=== PATIENT | male | born 1950 | race Caucasian/White ===

== ENCOUNTER 2024-11-08 10:22 | Emergency (ER) | payer MEDICARE, OTHER ==
--- NOTE | 2024-11-08 11:19 | RAD REPORT ---
EXAM: CT brain without contrast HISTORY: Headache status post head injury. Supraorbital pain COMPARISON: None TECHNIQUE: Multiple contiguous axial images were obtained and a CT of the brain without contrast.. Sagittal and coronal reconstruction performed. Automated exposure control, adjustment of the mA and/or kV according to patient size, and/or iterative reconstruction. 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 Moderate low-density paravent ricular, deep and subcortical white matter probably ischemic changes secondary to small vessel disease. No fluid within the visualized sinuses or mastoids noted. Small metallic foreign body superficial tissue aspect of the nose. IMPRESSION: No acute intracranial abnormality noted. If the patient continues to have symptoms to suggest an acute intracranial abnormality then MRI of th e brain would be recommended.
--- NOTE | 2024-11-08 11:48 | ER ---
Nurse's Notes [facility] Name: Uzair Kerns Age: 74 yrs Sex: Male : 1950 Arrival Date: 11/08/2024 Time: 10:22 Bed 18 Private MD: Diagnosis: Postconcussional syndrome;Injury of supraorbital nerve Presentation: 11/08 10:33 Chief complaint: Patient states: 2 weeks ago pt got dizzy and fell , he was evaluated iw in an ER in [place] and they said he was ok, he is still having headaches. Coronavirus screen: At this time, the client does not indicate any symptoms associated with coronavirus-19. Ebola Screen: No symptoms or risks identified at this time. Initial Sepsis Screen: Does the patient meet any 2 criteria? No. Patient's initial sepsis screen is negative. Does the patient have a suspected source of infection? No. Patient's initial sepsis screen is negative. Risk Assessment: Do you want to hurt yourself or someone else? Patient reports no desire to harm self or others. Onset of symptoms was October 27, 2024. 10:33 Method Of Arrival: Ambulatory iw 10:33 Acuity: CHARY 3 iw Triage Assessment: 10:43 Headache History: The patient has had previous headaches and this one is similar to bp previous episodes. General: Appears in no apparent distress. comfortable, Behavior is cooperative, appropriate for age, anxious. Pain: Complains of pain in head Pain currently is 4 out of 10 on a pain scale. Pain began 2 WK AGO Also complains of no other associated symptoms. EENT: No deficits noted. Neuro: Level of Consciousness is awake, alert, obeys commands, Oriented to Appropriate for age. Cardiovascular: No deficits noted. Respiratory: No deficits noted. GI: No signs and/or symptoms were reported involving the gastrointestinal system. : No signs and/or symptoms were reported regarding the genitourinary system. Derm: No deficits noted. Musculoskeletal: No deficits noted. Historical: - Allergies: 10:43 No Known Allergies; bp - Home Meds: 10:43 trazodone 50 mg Oral tablet [Active]; atorvastatin 40 mg oral tablet [Active]; bp memantine 10 mg oral tablet [Active]; metformin 500 mg Oral tablet [Active]; - PMHx: 10:43 Diabetes mellitus; NEUROPATHY; bp - Immunization history:: Adult Immunizations up to date. - Infectious Disease History:: Denies. - Social history:: Smoking status: Patient denies any tobacco usage or history of. - Family history:: not pertinent. - Hospitalizations: : No recent hospitalization is reported. Screenin:35 [facility] ED Fall Risk Assessment (Adult) History of falling in the last 3 months, bp including since admission Yes- single mechanical fall (1 pt) Confusion or Disorientation No (0 pts) Intoxicated or Sedated No (0 pts) Impaired Gait No (0 pts) Mobility Assist Device Used No (0 pt) Altered Elimination No (0 pt) Score/Fall Risk Level 0 - 2 = Low Risk Oriented to surroundings. Abuse screen: Denies threats or abuse. Denies injuries from another. Nutritional screening: No deficits noted. Tuberculosis screening: No symptoms or risk factors identified. Assessment: 10:40 General: Appears in no apparent distress. comfortable, Behavior is calm, cooperative, bp appropriate for age. Pain: Complains of pain in forehead. Neuro: Level of Consciousness is awake, alert, obeys commands, Oriented to Appropriate for age Gait is steady. Cardiovascular: No deficits noted. Respiratory: No deficits noted. GI: No signs and/or symptoms were reported involving the gastrointestinal system. : No signs and/or symptoms were reported regarding the genitourinary system. EENT: No deficits noted. Derm: No deficits noted. Musculoskeletal: No deficits noted. Vital Signs: 10:37 BP 125 / 65; Pulse 76; Resp 16; Temp 98; Pulse Ox 95% ; bp 12:15 BP 131 / 71; Pulse 72; Resp 16; Temp 98; Pulse Ox 97% ; bp Festus Coma Score: 11:45 Eye Response: spontaneous(4). Motor Response: obeys commands(6). Verbal Response: rn oriented(5). Total: 15. ED Course: 10:27 Patient arrived in ED. al6 10:30 Jarrell Wheeler, DOMENICO is Primary Nurse. bp 10:31 Michael Jennings MD is Attending Physician. rn 10:35 Triage completed. iw 10:35 Arm band placed on. iw 10:35 Patient has correct armband on for positive identification. bp 10:35 No provider procedures requiring assistance completed. Patient did not have IV access bp during this emergency room visit. 10:59 CT Head Brain wo Cont In Process Unspecified. EDMS 12:15 Provided Education on:. bp Administered Medications: No medications were administered Medication: 12:15 VIS not applicable for this client. bp Outcome: 10:35 Discharged to home ambulatory, with family, bp 10:35 Condition: stable 10:35 Discharge instructions given to patient, Instructed on discharge instructions, follow up and referral plans. medication usage, Demonstrated understanding of instructions, follow-up care, medications, Prescriptions given X 1, 11:47 Discharge ordered by . rn 12:16 Patient left the ED. bp Signatures: Dispatcher [employer] EDMS Kinsey Gannon, RN RN iw Michael Jennings MD MD rn Peltier, Brian, RN RN bp Pauline Heart Corrections: (The following items were deleted from the chart) 10:45 10:43 PMHx: Hypertensive disorder; bp bp
--- NOTE | 2024-11-08 11:48 | EDPHYS ---
Physician Documentation [facility] Name: Uzair Kerns Age: 74 yrs Sex: Male : 1950 Arrival Date: 11/08/2024 Time: 10:22 Bed 18 Private MD: ED Physician Michael Jennings HPI: 11/08 10:45 This 74 yrs old Male presents to ER via Ambulatory with complaints of Headache, Fall rn Injury - to head. 10:45 The patient complains of pain to the forehead. The patient describes the headache as rn aching. Onset: The symptoms/episode began/occurred 2 week(s) ago. Associated signs and symptoms: Pertinent negatives: altered mental status, fever, neck stiffness. Severity of symptoms: At its worst the pain was mild, in the emergency department the pain is unchanged. The symptoms are alleviated by nothing. the symptoms are aggravated by nothing. The patient has not experienced similar symptoms in the past. Patient reports fall 2 weeks ago, struck left supraorbital region on floor, no LOC, seen at outside ER with negative imaging of the head. Has been having focal pain to the left supraorbital ridge since then. No new falls or syncope. No dizziness. Patient reports has chronic neuropathy and thinks that is how he fell.. Historical: - Allergies: 10:43 No Known Allergies; bp - Home Meds: 10:43 trazodone 50 mg Oral tablet [Active]; atorvastatin 40 mg oral tablet [Active]; bp memantine 10 mg oral tablet [Active]; metformin 500 mg Oral tablet [Active]; - PMHx: 10:43 Diabetes mellitus; NEUROPATHY; bp - Immunization history:: Adult Immunizations up to date. - Infectious Disease History:: Denies. - Social history:: Smoking status: Patient denies any tobacco usage or history of. - Family history:: not pertinent. - Hospitalizations: : No recent hospitalization is reported. ROS: 10:46 Constitutional: Negative for fever, chills, and weight loss, Neck: Negative for injury, rn pain, and swelling, Cardiovascular: Negative for chest pain, palpitations, and edema, Respiratory: Negative for shortness of breath, cough, wheezing, and pleuritic chest pain, Abdomen/GI: Negative for abdominal pain, nausea, vomiting, diarrhea, and constipation, Neuro: Positive for headache Exam: 10:46 Constitutional: This is a well developed, well nourished patient who is awake, alert, rn and in no acute distress. Head/Face: Normocephalic, atraumatic. Point tenderness left supraorbital ridge over supraorbital nerve exit Eyes: Pupils equal round and reactive to light, extra-ocular motions intact. Lids and lashes normal. Conjunctiva and sclera are non-icteric and not injected. Cornea within normal limits. Periorbital areas with no swelling, redness, or edema. Neuro: Awake and alert, GCS 15, oriented to person, place, time, and situation. Vital Signs: 10:37 BP 125 / 65; Pulse 76; Resp 16; Temp 98; Pulse Ox 95% ; bp 12:15 BP 131 / 71; Pulse 72; Resp 16; Temp 98; Pulse Ox 97% ; bp Festus Coma Score: 11:45 Eye Response: spontaneous(4). Motor Response: obeys commands(6). Verbal Response: rn oriented(5). Total: 15. MDM: 10:31 Medical Screening Exam initiated rn 11:45 Differential diagnosis: migraine, subdural hematoma, tension headache, Neuropraxia, rn injury to supraorbital nerve. Data reviewed: vital signs, nurses notes, radiologic studies, CT scan, and as a result, I will discharge patient. Counseling: I had a detailed discussion with the patient and/or guardian regarding the historical points, exam findings, and any diagnostic results supporting the discharge/admit diagnosis, radiology results, the need for outpatient follow up, to return to the emergency department if symptoms worsen or persist or if there are any questions or concerns that arise at home. Special discussion: Based on the patient's history, exam and DX evaluation, there is no indication for emergent intervention or inpatient TX. It is understood by the patient/guardian that if the SXs persist or worsen they need to return immediately for re-evaluation. I discussed with the patient/guardian in detail that at this point there is no indication for admission to the hospital. It is understood, however, that if the symptoms persist or worsen the patient needs to return immediately for re-evaluation. ED course: CT head images negative for subdural hematoma or fracture per my interpretation. Patient most likely injured supraorbital nerve on its exit as he has point tenderness there and persistent pain since head injury. Will discharge home on gabapentin as he has been on it before for neuropathy but no longer taking it. He tolerated it well at the time. Return precautions given and understood.. 11/08 10:43 Order name: CT Head Brain wo Cont; Complete Time: 11:20 rn Administered Medications: No medications were administered Disposition Summary: 11/08/24 11:47 Discharge Ordered Notes: Location: Home rn Problem: new rn Symptoms: have improved rn Condition: Stable rn Diagnosis - Postconcussional syndrome rn - Injury of supraorbital nerve rn Followup: rn - With: Private Physician - When: As needed - Reason: Recheck today's complaints, Re-evaluation by your physician Discharge Instructions: - Discharge Summary Sheet rn - Post-Concussion Syndrome rn Forms: - Medication Reconciliation Form rn - Antibiotic maternal fetal physician - Prescription Opioid Use rn - Patient Portal Instructions rn - Leadership Thank You Letter rn Prescriptions: - gabapentin 100 mg Oral capsule - take 1 capsule ORAL route 2 times per day As needed; 14 capsule; Refills: 0, rn Product Selection Permitted Signatures: Dispatcher [employer] EDMichael Drew MD MD rn Peltier, Brian, RN RN bp Corrections: (The following items were deleted from the chart) 10:45 10:43 PMHx: Hypertensive disorder; bp bp
[2024-11-08 13:45] VITALS: TEMP 98
[2024-11-08 13:46] VITALS: BP 131/71; O2SAT 97
== END 2024-11-08 12:16 | disposition home or self-care (01) ==
LOC: ER 10:22
DX: R51.9 Headache, unspecified (principal); F07.81 Postconcussional syndrome; S04.52XA Injury of facial nerve, left side, initial encounter; E11.9 Type 2 diabetes mellitus without complications; G62.9 Polyneuropathy, unspecified
CPT/HCPCS: 70450

== ENCOUNTER 2024-11-21 15:23 | Emergency (ER) | payer MEDICARE, OTHER ==
[2024-11-21 15:54] LABS: Absolute Basophils 0.1 K/uL (0-0.5); Absolute Eosinophils 0.2 K/uL (0-0.5); Absolute Lymphocytes (CBC) 1.9 K/uL (0.7-4.9); Absolute Monocytes 0.6 K/uL (0.1-1.3); Absolute Neutrophil 5.8 K/uL (1.8-8.0); Basophils % 0.8 % (0-1.3); Eosinophils % 2.4 % (0-4.4); Hematocrit 40.2 % (39.6-49.0); Hemoglobin 14.2 g/dL (13.6-17.9); Lymphocytes % 22.3 % (15.3-44.8); MCHC 35.4 g/dL (32.0-36.0); MCV 96.2 fL (80-100); MPV 7.1 fL (7.6-11.3); Monocytes % 6.6 % (3.3-12.3); Neutrophils % 67.9 % (41.7-73.7); Nucleated Red Blood Cells % 0.1 % (0-0); Platelets 206 thou/uL (152-406); RBC Red Blood Cell Count 4.17 M/uL (4.33-5.43); Red Cell Distribution Width 12.2 % (12.1-15.2)
[2024-11-21 16:19] LABS: Troponin High Sensitivity 5.8 pg/mL (<58.9)
--- NOTE | 2024-11-21 17:17 | RAD REPORT ---
EXAM: Chest Single View HISTORY: CHEST PAIN COMPARISON: None. FINDINGS: LUNGS/PLEURA: Mild coarsening of the pulmonary interstitium. No focal consolidation or edema. MEDIASTINUM: The mediastinal silhouette is within normal limits. CARDIAC: Mild cardiomegaly UPPER ABDOMEN: No significant abnormality. BONES: No acute abnormality. Fusion hardware in the spine. LINES/TUBES/OTHER: N/A IMPRESSION: Mild coarsened interstitium which could reflect chronic changes. No consolidative airspace disease or edema.
--- NOTE | 2024-11-21 18:16 | ER ---
Nurse's Notes [facility] Name: Uzair Kerns Age: 74 yrs Sex: Male : 1950 Arrival Date: 11/21/2024 Time: 15:23 Bed 7 Private MD: Diagnosis: Lightheadedness;Nausea with vomiting, unspecified Presentation: 11/21 15:33 Chief complaint: Patient states: took Nitro SL x1 at home for anxiety. Pt reports he ss hasn't taken it in a long time and thought it might help with his anxiety. Pt reports shortly after administration, he became nauseated and vomited x 1. EMS reports initial BP on arrival was 90/60. Pt reports feeling better at this time. Coronavirus screen: Client denies travel out of the [place] in the last 14 days. Ebola Screen: Patient denies exposure to infectious person. Patient denies travel to an Ebola-affected area in the 21 days before illness onset. Initial Sepsis Screen: Does the patient meet any 2 criteria? No. Patient's initial sepsis screen is negative. Does the patient have a suspected source of infection? No. Patient's initial sepsis screen is negative. Risk Assessment: Do you want to hurt yourself or someone else? Patient reports no desire to harm self or others. Onset of symptoms was November 21, 2024. Care prior to arrival: Medication(s) given: Normal saline infusion, 750 mL IV initiated. 20 GA, in the right wrist. 15:33 Method Of Arrival: EMS: [facility] ss 15:33 Acuity: CHARY 3 ss Historical: - Allergies: 15:35 No Known Allergies; ss - PMHx: 15:35 diabetes mellitus; neuropathy; PTSD (neuropathy); ss - Immunization history:: Client reports having NOT received the Covid vaccine. - Infectious Disease History:: Denies. - Social history:: Smoking status: Patient reports the use of cigarette tobacco products, denies chronic smoking, but will smoke occasionally. Screenin:36 Abuse screen: Denies threats or abuse. Denies injuries from another. Nutritional ss screening: No deficits noted. Tuberculosis screening: Never had TB. 15:49 [facility] ED Fall Risk Assessment (Adult) History of falling in the last 3 months, ll1 including since admission No falls in past 3 months (0 pts) Confusion or Disorientation No (0 pts) Intoxicated or Sedated No (0 pts) Impaired Gait Yes (1 pt) Mobility Assist Device Used No (0 pt) Altered Elimination Yes (1 pt) Score/Fall Risk Level 3 or more points = High Risk Maintained a safe environment, Hourly rounding (assess needs \T\ fall precautionary measures) done, Used ambulatory aids as needed (educated on \T\ assisted with), Utilized family, sitter, or virtual tax specialist as indicated. Assessment: 15:36 General: Appears in no apparent distress. comfortable, well groomed, well developed, ss well nourished, Behavior is calm, cooperative, Denies fever, feeling ill, fatigue, chills. Pain: Denies pain. Neuro: Level of Consciousness is awake, alert, obeys commands, Oriented to person, place, time, situation. Respiratory: Airway is patent Respiratory effort is even, unlabored, Respiratory pattern is regular, symmetrical, Denies cough, shortness of breath pain with respiration, pain with cough, pain with movement. GI: Abdomen is non-distended, Patient currently denies nausea, Pt reports vomiting x 1 just after taking a Nitro. : No signs and/or symptoms were reported regarding the genitourinary system. EENT: Oral mucosa is moist. Derm: Skin Skin is pink, warm \T\ dry. normal. 16:39 Reassessment: Patient appears in no apparent distress at this time. Patient and/or ss family updated on plan of care and expected duration. Pain level reassessed. Patient is alert, oriented x 3, equal unlabored respirations, skin warm/dry/pink. at bedside. Vital Signs: 15:33 BP 124 / 78; Pulse 56; Resp 15; Temp 98(TE); Pulse Ox 97% on R/A; Weight 81.65 kg; ss Height 5 ft. 11 in. ; Pain 0/10; 18:13 BP 126 / 77; Pulse 54; Resp 16; Pulse Ox 99% on R/A; ss 15:33 Body Mass Index 25.10 (81.65 kg, 180.34 cm) ss 15:33 Pain Scale: Adult ss ED Course: 15:30 Provided Education on: ER procedures and process. ll1 15:31 Patient arrived in ED. ss 15:35 Triage completed. ss 15:35 Arm band placed on right wrist. ss 15:36 Patient has correct armband on for positive identification. Bed in low position. Call ss light in reach. Side rails up X 1. Adult w/ patient. Client placed on continuous cardiac and pulse oximetry monitoring. NIBP monitoring applied. Warm blanket given. 15:36 Maintain EMS IV. Dressing intact. Good blood return noted. Site clean \T\ dry. Gauge \T\ ss site: 20 gauge in R wrist. Flushed with 10 mL NS. 15:38 Jannie Noguera, RN is Primary Nurse. [facility] 15:38 Dejuan Schroeder DO is Attending Physician. ms3 15:38 Initial lab(s) drawn, by me, sent to lab. EKG done. ll1 16:41 XRAY Chest (1 view) In Process Unspecified. EDMS 18:23 No provider procedures requiring assistance completed. IV discontinued, intact, ss bleeding controlled, No redness/swelling at site. Pressure dressing applied. Administered Medications: No medications were administered Medication: 15:36 VIS not applicable for this client. ss Outcome: 18:15 Discharge ordered by MD. ms3 18:23 Discharged to home ambulatory, with significant other, ss 18:23 Condition: good 18:23 Discharge instructions given to patient, Instructed on discharge instructions, follow up and referral plans. Demonstrated understanding of instructions, follow-up care, 18:24 Patient left the ED. ss Signatures: Dispatcher [employer] EDMS Michelle Gusman RN RN Jannie Noguera, DOMENICO RN [facility] Dejuan Schroeder DO DO ms3
--- NOTE | 2024-11-21 18:16 | EDPHYS ---
Physician Documentation [facility] Name: Uzair Kerns Age: 74 yrs Sex: Male : 1950 Arrival Date: 11/21/2024 Time: 15:23 Bed 7 Private MD: ED Physician Dejuan Schroeder HPI: 11/21 17:29 This 74 yrs old Male presents to ER via EMS with complaints of Nausea. ms3 17:29 74-year-old male with past medical history of diabetes, neuropathy, PTSD [facility] the [facility] department for lightheadedness. Patient states he went for a ride on his golf cart with his and on returning noted his nitroglycerin had arrived in the mail. Patient has not taken nitroglycerin in a while and took a nitroglycerin pill. Patient states after taking the pill he then became lightheaded and vomited.. Historical: - Allergies: 15:35 No Known Allergies; ss - PMHx: 15:35 diabetes mellitus; neuropathy; PTSD (neuropathy); ss - Immunization history:: Client reports having NOT received the Covid vaccine. - Infectious Disease History:: Denies. - Social history:: Smoking status: Patient reports the use of cigarette tobacco products, denies chronic smoking, but will smoke occasionally. ROS: 17:29 Constitutional: Negative for fever, and chills. Respiratory: Negative for shortness of ms3 breath, cough, wheezing, and pleuritic chest pain, 17:29 MS/Extremity: Negative for injury and deformity, Skin: Negative for injury, rash, and discoloration, 17:29 Cardiovascular: Negative for chest pain, and palpitations. 17:29 Abdomen/GI: Positive for vomiting, Negative for nausea, diarrhea, Exam: 17:29 Constitutional: This is a well developed, well nourished patient who is awake, alert, ms3 and in no acute distress. Cardiovascular: Regular rate and rhythm with a normal S1 and S2. No gallops, murmurs, or rubs. Normal PMI, no JVD. No pulse deficits. Respiratory: Lungs have equal breath sounds bilaterally, clear to auscultation and percussion. No rales, rhonchi or wheezes noted. No increased work of breathing, no retractions or nasal flaring. Abdomen/GI: Soft, non-tender, with normal bowel sounds. No distension or tympany. No guarding or rebound. No evidence of tenderness throughout. Skin: Warm, dry with normal turgor. Normal color with no rashes, no lesions, and no evidence of cellulitis. 17:31 ECG was reviewed by the Attending Physician. ms3 Vital Signs: 15:33 BP 124 / 78; Pulse 56; Resp 15; Temp 98(TE); Pulse Ox 97% on R/A; Weight 81.65 kg; ss Height 5 ft. 11 in. ; Pain 0/10; 18:13 BP 126 / 77; Pulse 54; Resp 16; Pulse Ox 99% on R/A; ss 15:33 Body Mass Index 25.10 (81.65 kg, 180.34 cm) ss 15:33 Pain Scale: Adult ss MDM: 15:57 Medical Screening Exam initiated ms3 17:29 Differential diagnosis: Nonspecific abd pain, PA vs Arrhythmia vs Electrolyte ms3 abnormality. 18:16 Data reviewed: vital signs, nurses notes, lab test result(s), EKG, radiologic studies, ms3 and as a result, I will discharge patient. Independent interpretation of the following test(s) in the Emergency Department EKG: See my EKG interpretation above. Counseling: I had a detailed discussion with the patient and/or guardian regarding the historical points, exam findings, and any diagnostic results supporting the discharge/admit diagnosis, lab results, radiology results, the need for outpatient follow up, to return to the emergency department if symptoms worsen or persist or if there are any questions or concerns that arise at home. Special discussion: Based on the patient's history, exam, and Dx evaluation, there is no indication for emergent intervention or inpatient Tx. It is understood by the patient/guardian that if the Sx's persist or worsen they need to return immediately for re-evaluation. ED course: Discussed chest x-ray, EKG, labs with patient and his . Patient states his symptoms have resolved and he would like discharge. All questions were answered. Return precautions discussed include worsening symptoms, or any other concerns. On reevaluation patient is alert and oriented x 4, no apparent distress, nontoxic-appearing, speaking full sentences.. 11/21 15:38 Order name: Basic Metabolic Panel; Complete Time: 17: ll1 11/21 15:38 Order name: CBC with Diff; Complete Time: 17:09 ll1 02/24 15:38 Order name: Troponin HS; Complete Time: 17:09 11/21 15:38 Order name: XRAY Chest (1 view); Complete Time: 17:29 ll11/21 15:38 Order name: EKG; Complete Time: 15:39 11/21 15:38 Order name: Cardiac monitoring; Complete Time: 15:39 11/21 15:38 Order name: EKG - Nurse/Tech; Complete Time: 15:39 11/21 15:38 Order name: IV Saline Lock; Complete Time: 15:39 ll11/21 15:38 Order name: Labs collected and sent; Complete Time: 15:39 11/21 15:38 Order name: O2 Per Protocol; Complete Time: 15:39 11/21 15:38 Order name: O2 Sat Monitoring; Complete Time: 15:39 ll1 EC:31 Rate is 56 beats/min. Rhythm is regular. WA interval is normal. QRS interval is normal. ms3 Clinical impression: NSR w/ Non-specific ST/T Changes. Interpreted by me. Reviewed by me. Administered Medications: No medications were administered Disposition Summary: 11/21/24 18:15 Discharge Ordered Notes: Location: Home ms3 Condition: Stable ms3 Diagnosis - Lightheadedness ms3 - Nausea with vomiting, unspecified ms3 Followup: ms3 - With: Private Physician - When: 2 - 3 days - Reason: Recheck today's complaints Discharge Instructions: - Discharge Summary Sheet ms3 - Nausea and Vomiting, Adult ms3 - Dizziness, [id number] ms3 Forms: - Medication Reconciliation Form ms3 - Antibiotic Education ms3 - Prescription Opioid Use ms3 - Patient Portal Instructions ms3 - Leadership Thank You Letter ms3 Signatures: Dispatcher [employer] Michelle Mg RN RN ss Jannie Noguera RN RN 1 Dejuan Schroeder DO DO ms3
[2024-11-21 18:35] VITALS: TEMP 98
[2024-11-21 18:36] VITALS: BP 126/77; O2SAT 99
== END 2024-11-21 18:24 | disposition home or self-care (01) ==
LOC: ER 15:23
DX: R42 Dizziness and giddiness (principal); R11.2 Nausea with vomiting, unspecified; E11.9 Type 2 diabetes mellitus without complications; F17.210 Nicotine dependence, cigarettes, uncomplicated
CPT/HCPCS: 36415; 71045; 80048; 84484; 85025; 93005; 99284

== ENCOUNTER 2025-01-27 12:30 | Emergency (ER) | payer MEDICARE ==
[2025-01-27] MEDS ORDERED: FLEET ENEMA ADULT PR ONE (12:49)
--- NOTE | 2025-01-27 13:12 | RAD REPORT ---
EXAM: Chest Single View HISTORY: 74 years Male DYSPNEA COMPARISON: 11/21/2024 FINDINGS: LUNGS/PLEURA: Similar coarsened pulmonary interstitium. No focal consolidation. No definite edema. CARDIAC/MEDIASTINUM: The cardiac silhouette is within normal limits. UPPER ABDOMEN: No significant abnormality. BONES: No acute abnormality. LINES/TUBES/OTHER: N/A IMPRESSION: No evidence of acute cardiopulmonary disease. No significant change from prior.
[2025-01-27 13:27] LABS: Absolute Eosinophils 0.1 K/uL (0-0.5); Absolute Lymphocytes (CBC) 2.2 K/uL (0.7-4.9); Absolute Monocytes 0.5 K/uL (0.1-1.3); Absolute Neutrophil 7.4 K/uL (1.8-8.0); Basophils % 0.4 % (0-1.3); Eosinophils % 1.1 % (0-4.4); Hemoglobin 12.6 g/dL (13.6-17.9); Lymphocytes % 21.3 % (15.3-44.8); MCH 33.9 pg (27.0-35.0); MCHC 34.9 g/dL (32.0-36.0); MCV 97.1 fL (80-100); MPV 7.1 fL (7.6-11.3); Monocytes % 5.2 % (3.3-12.3); Nucleated Red Blood Cells % 0.1 % (0-0); Platelets 218 thou/uL (152-406); RBC Red Blood Cell Count 3.71 M/uL (4.33-5.43); Red Cell Distribution Width 13.9 % (12.1-15.2)
[2025-01-27 13:35] LABS: D-Dimer 0.555 FEUug/mL (0-0.500); PT Prothrombin Time 13.1 SECONDS (10-13.0); Protime INR 1.16
[2025-01-27 14:21] LABS: Potassium 3.8 mEq/L (3.5-5.1)
[2025-01-27 14:23] LABS: Albumin 3.8 g/dL (3.4-5.0); Anion Gap 10.8 mEq/L (5.0-15.0); Magnesium 2.1 mg/dL (1.6-2.4)
[2025-01-27 14:26] LABS: Bilirubin Direct 0.2 mg/dL (0-0.2)
[2025-01-27 14:28] LABS: Albumin/Globulin Ratio 1.1 (1.1-1.8); Bilirubin Indirect, Calculated 0.4 mg/dL (0.2-0.8); Bilirubin Total 0.6 mg/dL (0.2-1.0); Globulin 3.4 g/dL (2.3-3.5); Protein, Total 7.2 g/dL (6.4-8.2)
[2025-01-27 14:35] LABS: Troponin High Sensitivity 10.6 pg/mL (<58.9)
--- NOTE | 2025-01-27 14:45 | EDPHYS ---
Physician Documentation [facility] Name: Uzair Kerns Age: 74 yrs Sex: Male : 1950 Arrival Date: 01/27/2025 Time: 12:30 Bed 8 Private MD: ED Physician Halley Spann HPI: 01/27 14:45 This 74 yrs old Male presents to ER via EMS with complaints of Chest Pain. gb1 14:45 74-year-old male with chief complaint of initially per EMS chest pain. Patient states gb1 that he really has to use the restroom and cannot do that at home. He has a history of diabetes, neuropathy and PTSD. Patient denies any shortness of breath at this time. He denies any radiation of any kind of pain.. Historical: - Allergies: 12:32 No Known Allergies; aa5 - PMHx: 12:32 diabetes mellitus; neuropathy; PTSD (neuropathy); aa5 - Immunization history:: Adult Immunizations up to date. - Infectious Disease History:: Denies. - Social history:: Smoking status: unknown. Exam: 14:45 Constitutional: This is a well developed, well nourished patient who is awake, alert, gb1 and in no acute distress. Head/Face: Normocephalic, atraumatic. Eyes: Pupils equal round and reactive to light, extra-ocular motions intact. Lids and lashes normal. Conjunctiva and sclera are non-icteric and not injected. Cornea within normal limits. Periorbital areas with no swelling, redness, or edema. ENT: Nares patent. No nasal discharge, no septal abnormalities noted. Tympanic membranes are normal and external auditory canals are clear. Oropharynx with no redness, swelling, or masses, exudates, or evidence of obstruction, uvula midline. Mucous membranes moist. Neck: Trachea midline, no thyromegaly or masses palpated, and no cervical lymphadenopathy. Supple, full range of motion without nuchal rigidity, or vertebral point tenderness. No Meningismus. Chest/axilla: Normal chest wall appearance and motion. Nontender with no deformity. No lesions are appreciated. Cardiovascular: Regular rate and rhythm with a normal S1 and S2. No gallops, murmurs, or rubs. Normal PMI, no JVD. No pulse deficits. Respiratory: Lungs have equal breath sounds bilaterally, clear to auscultation and percussion. No rales, rhonchi or wheezes noted. No increased work of breathing, no retractions or nasal flaring. Abdomen/GI: Soft, non-tender, with normal bowel sounds. No distension or tympany. No guarding or rebound. No evidence of tenderness throughout. Back: No spinal tenderness. No costovertebral tenderness. Full range of motion. Skin: Warm, dry with normal turgor. Normal color with no rashes, no lesions, and no evidence of cellulitis. MS/ Extremity: Pulses equal, no cyanosis. Neurovascular intact. Full, normal range of motion. Neuro: Awake and alert, GCS 15, oriented to person, place, time, and situation. Cranial nerves II-XII grossly intact. Motor strength 5/5 in all extremities. Sensory grossly intact. Cerebellar exam normal. Normal gait. Vital Signs: 12:35 BP 146 / 80; Pulse 62; Resp 16; Temp 97.9; Pulse Ox 99% ; bp 14:54 BP 141 / 79; Pulse 61; Resp 16; Pulse Ox 99% ; bp MDM: 12:36 Medical Screening Exam initiated gb1 14:45 Data reviewed: vital signs, nurses notes. ED course: 74-year-old male with gb1 history of diabetes, neuropathy and PTSD presented with initially per EMS chest pain. When the patient got to the bedside he denied any chest pain and stated that he just needed use the restroom. Bedside nursing helped the patient to the restroom and he did have a large bowel movement. Patient denies any anginal component chest pain his EKG shows sinus bradycardia with a sinus arrhythmia he has some nonspecific ST-T wave changes that are nonreciprocal in nature. He has normal intervals and axis. Patient at this time is stable for discharge home I doubt NSTEMI, or STEMI I doubt PE or any CHF with pulmonary edema. Patient's chest x-ray shows no focal pneumonia and no cardiomegaly I will discharge him home with return precautions which is compliant to prior to discharge home today.. 01/27 12:44 Order name: Basic Metabolic Panel [facility] 01/27 12:44 Order name: CBC with Diff; Complete Time: 13:49 [facility] 01/27 12:44 Order name: D-Dimer; Complete Time: 13:49 [facility] 01/27 12:44 Order name: LFT's [facility] 01/27 12:44 Order name: Magnesium [facility] 01/27 12:44 Order name: NT PRO-BNP [facility] 01/27 12:44 Order name: PT-INR; Complete Time: 13:49 [facility] 01/27 12:44 Order name: Troponin HS [facility] 01/27 12:44 Order name: XRAY Chest (1 view); Complete Time: 13:23 [facility] 01/27 12:44 Order name: EKG; Complete Time: 12:44 [facility] 01/27 12:44 Order name: Cardiac monitoring; Complete Time: 12:53 [facility] 01/27 12:44 Order name: EKG - Nurse/Tech; Complete Time: 13:11 [facility] 01/27 12:44 Order name: IV Saline Lock; Complete Time: 12:53 [facility] 01/27 12:44 Order name: Labs collected and sent; Complete Time: 13:15 [facility] 01/27 12:44 Order name: O2 Per Protocol; Complete Time: 12:53 [facility] 01/27 12:44 Order name: O2 Sat Monitoring; Complete Time: 12:53 [facility] 01/27 13:32 Order name: Labs - recollect needed: recollect green top/ not filled enough; Complete eb Time: 13:53 Administered Medications: 12:52 Not Given (DUPLICATEe): aspirinchewable tablet 324 mg PO once; 81 mg tablets x 4 bp Disposition Summary: 01/27/25 14:44 Discharge Ordered Notes: Location: Home gb1 Condition: Stable gb1 Diagnosis - Constipation, unspecified gb1 Followup: gb1 - With: Private Physician - When: - Reason: If symptoms return Discharge Instructions: - Discharge Summary Sheet gb1 - Constipation, Adult, [id number] gb1 Forms: - Medication Reconciliation Form gb1 - Antibiotic Education gb1 - Prescription Opioid Use gb1 - Patient Portal Instructions gb1 - Leadership Thank You Letter gb1 Signatures: Dispatcher [employer] Suzanne Gueavra, RN RN aa5 Jarrell Wheeler RN RN bp Candy Rosa Gina, MD MD gb1
--- NOTE | 2025-01-27 14:45 | ER ---
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 Coronavirus screen: At this time, the client does not indicate any symptoms associated with coronavirus-19. Ebola Screen: No symptoms or risks identified at this time. Initial Sepsis Screen: Does the patient meet any 2 criteria? No. Patient's initial sepsis screen is negative. Does the patient have a suspected source of infection? No. Patient's initial sepsis screen is negative. Risk Assessment: Do you want to hurt yourself or someone else? Patient reports no desire to harm self or others. Onset of symptoms was January 27, 2025. Care prior to arrival: Medication(s) given: ASA, 81 mg, x 4, Nitroglycerin, 0.4 mg SL x 3. 12:35 Method Of Arrival: EMS bp 12:35 Acuity: CHARY 3 bp 12:38 Care prior to arrival: IV initiated. 18 GA, in the left wrist. bp Triage Assessment: 12:35 General: Appears in no apparent distress. Behavior is agitated, anxious, uncooperative. bp Pain: Complains of pain in chest. EENT: No deficits noted. Neuro: No deficits noted. Cardiovascular: No deficits noted. Respiratory: No deficits noted. GI: No signs and/or symptoms were reported involving the gastrointestinal system. : No signs and/or symptoms were reported regarding the genitourinary system. Derm: No deficits noted. Musculoskeletal: No deficits noted. Historical: - Allergies: 12:32 No Known Allergies; aa5 - PMHx: 12:32 diabetes mellitus; neuropathy; PTSD (neuropathy); aa5 - Immunization history:: Adult Immunizations up to date. - Infectious Disease History:: Denies. - Social history:: Smoking status: unknown. Screenin:[facility] ED Fall Risk Assessment (Adult) History of falling in the last 3 months, bp including since admission No falls in past 3 months (0 pts) Confusion or Disorientation No (0 pts) Intoxicated or Sedated No (0 pts) Impaired Gait No (0 pts) Mobility Assist Device Used No (0 pt) Altered Elimination No (0 pt) Score/Fall Risk Level 0 - 2 = Low Risk Oriented to surroundings. Abuse screen: Denies threats or abuse. Denies injuries from another. Nutritional screening: No deficits noted. Tuberculosis screening: No symptoms or risk factors identified. Assessment: 12:51 General: Appears in no apparent distress. Behavior is agitated, anxious. bp Vital Signs: 12:35 BP 146 / 80; Pulse 62; Resp 16; Temp 97.9; Pulse Ox 99% ; bp 14:54 BP 141 / 79; Pulse 61; Resp 16; Pulse Ox 99% ; bp ED Course: 12:31 Patient arrived in ED. aa5 12:32 Arm band placed on. aa5 12:34 Halley Spann MD is Attending Physician. gb1 12:35 Jarrell Wheeler, RN is Primary Nurse. bp 12:37 Triage completed. bp 12:51 Patient has correct armband on for positive identification. bp 12:51 Maintain EMS IV. Dressing intact. Good blood return noted. Site clean \T\ dry. Gauge \T\ bp site: 18 LEFT WRIST. Flushed with 10 mL NS. 13:06 XRAY Chest (1 view) In Process Unspecified. EDMS 13:11 EKG done, by ED staff, reviewed by Halley Spann MD. em1 13:15 Initial lab(s) drawn, by me, sent to lab. bp 14:53 No provider procedures requiring assistance completed. IV discontinued, intact, bp bleeding controlled, No redness/swelling at site. Pressure dressing applied. Administered Medications: 12:52 Not Given (DUPLICATEe): aspirinchewable tablet 324 mg PO once; 81 mg tablets x 4 bp Medication: 12:51 VIS not applicable for this client. bp Outcome: 14:44 Discharge ordered by . gb1 14:54 Discharged to home ambulatory, with family, bp 14:54 Condition: stable 14:54 Discharge instructions given to patient, Instructed on discharge instructions, follow up and referral plans. Demonstrated understanding of instructions, follow-up care, 14:55 Patient left the ED. bp Signatures: Dispatcher [employer] EDMS Balbir Jhaveri em1 Suzanne Vera, RN RN aa5 Jarrell Wheeler, RN RN bp Zana, MD MURIEL Rowley gb1 Corrections: (The following items were deleted from the chart) 12:53 12:35 BP 146 / 80; Pulse 62bpm; Resp 16bpm; Pulse Ox 99%; bp bp
[2025-01-27 15:45] VITALS: TEMP 97.9; O2SAT 99
[2025-01-27 15:46] VITALS: BP 141/79
--- NOTE | 2025-01-30 12:11 | EKG ---
Test Date: 2025-01-27 Test Time: 13:07:35 Counter Dish Carrier: SHAILESH MEASUREMENT RESULTS: Intervals: Rate: 52 IA: 194 QRSD: 96 QT: 468 QTc: 435 [place]: P: 73 IA: 194 QRS: 68 T: 82 INTERPRETIVE STATEMENTS: Sinus bradycardia with sinus arrhythmia Nonspecific ST and T wave abnormality Abnormal ECG Compared to ECG 11/21/2024 15:33:32 ST (T wave) deviation now present First degree AV block no longer present Left ventricular hypertrophy no longer present Myocardial infarct finding no longer present T-wave abnormality no longer present Possible ischemia no longer present Electronically Signed On 01-30-25 12:08:10 CDT by Syed Melton
== END 2025-01-27 14:55 | disposition home or self-care (01) ==
LOC: ER 12:30
DX: K59.00 Constipation, unspecified (principal); R07.9 Chest pain, unspecified
CPT/HCPCS: 36415; 71045; 80048; 80076; 83735; 83880; 84484; 85025; 85379; 85610; 93005; 99284

== ENCOUNTER 2025-02-07 16:54 | Emergency (ER) | payer MEDICARE ==
[2025-02-07 17:53] LABS: Absolute Eosinophils 0.2 K/uL (0-0.5); Absolute Lymphocytes (CBC) 2.2 K/uL (0.7-4.9); Absolute Monocytes 0.4 K/uL (0.1-1.3); Absolute Neutrophil 4.8 K/uL (1.8-8.0); Basophils % 0.5 % (0-1.3); Eosinophils % 2.5 % (0-4.4); Hematocrit 39.1 % (39.6-49.0); Hemoglobin 13.7 g/dL (13.6-17.9); MCH 33.7 pg (27.0-35.0); MCV 96.4 fL (80-100); MPV 6.9 fL (7.6-11.3); Monocytes % 5.5 % (3.3-12.3); Neutrophils % 62.5 % (41.7-73.7); Nucleated Red Blood Cells % 0.1 % (0-0); Platelets 218 thou/uL (152-406); RBC Red Blood Cell Count 4.06 M/uL (4.33-5.43); Red Cell Distribution Width 13.8 % (12.1-15.2)
--- NOTE | 2025-02-07 18:17 | RAD REPORT ---
EXAMINATION: Head Brain Wo Cont CLINICAL INDICATION: Male, 74 years old.NUMBNESS TECHNIQUE: Axial CT images from the skull base to the vertex without intravenous contrast. Coronal an d sagittal reformatted images were created from the data set. One or more of the following dose reduction techniques were used: Automated exposure control, adjustment of the mA and/or kV according to patient size, and/or iterative reconstruction. Unless otherwise specified, incidental findings do not require dedicated imaging follow-up. [id number]. COMPARISON: 11/08/2024 FINDINGS: INTRACRANIAL: No acute intracranial hemorrhage. No hydrocephalus. No mass effect or midline shift. Fa irly pronounced bilateral subcortical and deep white matter hypoattenuation primarily involving the bilateral parietal lobes and right temporal lobe which is unchanged. 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 VASCULATURE: No visualized abnormalities in the arteries or dural venous sinuses. SCALP/SKULL: No calvarial fracture identified. No acute soft tissue abnormality. SINUSES: The visualized paranasal sinuses are mostly clear. No significant mastoid fluid. IMPRESSION: No definite acute intracranial process identified. Bilateral parietal lobe and right temporal lobe judge bcortical and deep white matter that may reflect a combination of remote infarcts and chronic small vessel ischemic changes. Overall, the appearance is similar to 11/08/2024.
--- NOTE | 2025-02-07 18:48 | ER ---
Nurse's Notes [facility] Name: Uzair Kerns Age: 74 yrs Sex: Male : 1950 Arrival Date: 02/07/2025 Time: 16:54 Bed 13 Private MD: Diagnosis: Paresthesia, anxiety Presentation: 02/07 17:01 Chief complaint: Patient states: started some medication and it is making me have me1 tremors X 3 days, his states he was on Cipro and Flagyl but has not been on it since last Thursday , he is also having numbness in both arms and face . states he had shaking Thursday a week ago. 17:01 Coronavirus screen: At this time, the client does not indicate any symptoms associated iw with coronavirus-19. Ebola Screen: No symptoms or risks identified at this time. Initial Sepsis Screen: Does the patient meet any 2 criteria? No. Patient's initial sepsis screen is negative. Does the patient have a suspected source of infection? No. Patient's initial sepsis screen is negative. 17:01 Method Of Arrival: Ambulatory iw 17:03 Risk Assessment: Do you want to hurt yourself or someone else? Patient reports no iw desire to harm self or others. 17:03 Acuity: CHARY 3 iw 17:04 Onset of symptoms was January 31, 2025. iw Historical: - Allergies: 17:04 Cipro PO; iw 17:04 Flagyl; iw - Home Meds: 17:04 atorvastatin 40 mg Oral tablet [Active]; memantine 10 mg Oral tablet [Active]; iw metformin 500 mg Oral tablet [Active]; trazodone 50 mg Oral tablet [Active]; - PMHx: 17:03 PTSD (neuropathy); neuropathy; diabetes mellitus; brain bleed; iw - Immunization history:: Adult Immunizations up to date. - Infectious Disease History:: Denies. - Social history:: Smoking status: unknown. Screenin:15 [facility] ED Fall Risk Assessment (Adult) History of falling in the last 3 months, me1 including since admission No falls in past 3 months (0 pts) Confusion or Disorientation No (0 pts) Intoxicated or Sedated No (0 pts) Impaired Gait No (0 pts) Mobility Assist Device Used No (0 pt) Altered Elimination No (0 pt) Score/Fall Risk Level 0 - 2 = Low Risk Maintained a safe environment, Provided non-skid footwear, Hourly rounding (assess needs \T\ fall precautionary measures) done. Abuse screen: Denies threats or abuse. Nutritional screening: No deficits noted. Tuberculosis screening: No symptoms or risk factors identified. Assessment: 17:15 General: Appears in no apparent distress. well groomed, well developed, well nourished, me1 Behavior is calm, cooperative, appropriate for age, Reports started some medication and it is making me have tremors X 3 days, his states he was on Cipro and Flagyl but has not been on it since last Thursday , he is also having numbness in both arms and face . states he had shaking Thursday a week ago. Pain: Denies pain. Neuro: Level of Consciousness is awake, alert, obeys commands, Oriented to person, place, time, situation, Appropriate for age Reports started some medication and it is making me have tremors X 3 days, his states he was on Cipro and Flagyl but has not been on it since last Thursday , he is also having numbness in both arms and face . states he had shaking Thursday a week ago . Cardiovascular: Patient's skin is warm and dry. Respiratory: Airway is patent Respiratory effort is even, unlabored, Respiratory pattern is regular, symmetrical. GI: No signs and/or symptoms were reported involving the gastrointestinal system. : No signs and/or symptoms were reported regarding the genitourinary system. EENT: No signs and/or symptoms were reported regarding the EENT system. Derm: Skin is intact, is healthy with good turgor, Skin is pink, warm \T\ dry. Musculoskeletal: Reports numbness in face, right arm and left arm. Vital Signs: 17:03 BP 147 / 78; Pulse 48; Resp 16 S; Temp 97.7; Pulse Ox 98% on R/A; Weight 77.11 kg; iw Height 5 ft. 11 in. ; 18:59 BP 141 / 72; Pulse 56; Resp 16; Temp 98.2; Pulse Ox 100% ; me1 17:03 Body Mass Index 23.71 (77.11 kg, 180.34 cm) iw ED Course: 16:57 Patient arrived in ED. cj3 17:00 Amanda Vang MD is Attending Physician. sp3 17:03 Triage completed. iw 17:05 Arm band placed on. iw 17:15 Patient has correct armband on for positive identification. Bed in low position. Call me1 light in reach. Side rails up X 1. Side rails up X2. Provided Education on: POC. Verbalized understanding.. Client placed on continuous cardiac and pulse oximetry monitoring. NIBP monitoring applied. switchboard and control room operator on. Pulse ox on. NIBP on. 17:15 No provider procedures requiring assistance completed. me1 17:31 Yanna Enrique, RN is Primary Nurse. me1 17:44 Initial lab(s) drawn, by me, sent to lab. Inserted saline lock: 22 gauge in right me1 antecubital area, using aseptic technique. 17:45 Basic Metabolic Panel Sent. me1 17:45 CBC with Diff Sent. me1 17:45 Troponin HS Sent. me1 18:00 CT Head Brain wo Cont In Process Unspecified. EDMS 19:00 IV discontinued, intact, bleeding controlled, No redness/swelling at site. Pressure me1 dressing applied. Administered Medications: No medications were administered Medication: 17:15 VIS not applicable for this client. me1 Outcome: 18:47 Discharge ordered by . sp3 19:00 Discharged to home ambulatory, with significant other, me1 19:00 Condition: stable 19:00 Discharge instructions given to patient, Instructed on discharge instructions, follow up and referral plans. Demonstrated understanding of instructions, follow-up care, 19:05 Patient left the ED. me1 Signatures: Dispatcher [employer] Kinsey Anne RN RN Amanda Vang MD MD sp3 Yanna Enrique, DOMENICO RN [facility] Carlee Sarkar 3 Corrections: (The following items were deleted from the chart) 17:03 17:01 Chief complaint: Patient states: started some medication and it is making me have iw tremors X 3 days iw 17:04 17:03 PMHx: brain bleed (diabetes mellitus ); iw iw 17:05 17:03 BP 147 / 78; Pulse 48bpm; Resp 16bpm; Spontaneous; iw iw 17:06 17:03 BP 147 / 78; Pulse 48bpm; Resp 16bpm; Spontaneous; 77.11 kg; Height 5 ft. 11 in.; iw BMI: 23.7; iw 18:57 17:01 Chief complaint: Patient states: started some medication and it is making me have me1 tremors X 3 days, his states he was on Cipro and Flagyl but has not been on it since last Thursday , he is also having numbness in both arms and face . states he had shaking Thursday a week ago iw
--- NOTE | 2025-02-07 18:48 | EDPHYS ---
Physician Documentation [facility] Name: Uzair Kerns Age: 74 yrs Sex: Male : 1950 Arrival Date: 02/07/2025 Time: 16:54 Bed 13 Private MD: ED Physician Amanda Vang HPI: 02/07 17:32 This 74 yrs old Male presents to ER via Ambulatory with complaints of Numbness Of Face, sp3 Numbness - Arms\\T\\Legs. 17:32 74-year-old male with history of diabetes, "brain bleed" in 2019, neuropathy, PTSD, now sp3 presents to the ED with chief complaint numbness and tingling in all extremities for 1 week after taking Cipro for diverticulitis. Patient denies any focal neurological symptoms, headache, chest pain, back pain, abdominal pain, weakness, slurred speech, or any other concerning signs or symptoms based on him and his 's history.. Historical: - Allergies: 17:04 Cipro PO; iw 17:04 Flagyl; iw - Home Meds: 17:04 atorvastatin 40 mg Oral tablet [Active]; memantine 10 mg Oral tablet [Active]; iw metformin 500 mg Oral tablet [Active]; trazodone 50 mg Oral tablet [Active]; - PMHx: 17:03 PTSD (neuropathy); neuropathy; diabetes mellitus; brain bleed; iw - Immunization history:: Adult Immunizations up to date. - Infectious Disease History:: Denies. - Social history:: Smoking status: unknown. ROS: 17:33 Constitutional: Negative for fever, chills, and weight loss, Eyes: Negative for injury, sp3 pain, redness, and discharge, ENT: Negative for injury, pain, and discharge, Neck: Negative for injury, pain, and swelling, Cardiovascular: Negative for chest pain, palpitations, and edema, Respiratory: Negative for shortness of breath, cough, wheezing, and pleuritic chest pain, Abdomen/GI: Negative for abdominal pain, nausea, vomiting, diarrhea, and constipation, Back: Negative for injury and pain, MS/Extremity: Negative for injury and deformity, Skin: Negative for injury, rash, and discoloration, Allergy/Immunology: Negative for hives, rash, and allergies, Endocrine: Negative for neck swelling, polydipsia, polyuria, polyphagia, and marked weight changes, Hematologic/Lymphatic: Negative for swollen nodes, abnormal bleeding, and unusual bruising, 17:33 All other systems are negative, Exam: 17:35 Constitutional: This is a well developed, well nourished patient who is awake, alert, sp3 and in no acute distress. Head/Face: Normocephalic, atraumatic. Eyes: Pupils equal round and reactive to light, extra-ocular motions intact. Lids and lashes normal. Conjunctiva and sclera are non-icteric and not injected. Cornea within normal limits. Periorbital areas with no swelling, redness, or edema. ENT: Nares patent. No nasal discharge, no septal abnormalities noted. External auditory canals are clear. Oropharynx with no redness, swelling, or masses, exudates, or evidence of obstruction, uvula midline. Mucous membranes moist. Neck: Trachea midline, no thyromegaly or masses palpated, and no cervical lymphadenopathy. Supple, full range of motion without nuchal rigidity, or vertebral point tenderness. No Meningismus. Chest/axilla: Normal chest wall appearance and motion. Nontender with no deformity. No lesions are appreciated. Cardiovascular: Regular rate and rhythm with a normal S1 and S2. No gallops, murmurs, or rubs. Normal PMI, no JVD. No pulse deficits. Respiratory: Lungs have equal breath sounds bilaterally, clear to auscultation and percussion. No rales, rhonchi or wheezes noted. No increased work of breathing, no retractions or nasal flaring. Abdomen/GI: Soft, non-tender, with normal bowel sounds. No distension or tympany. No guarding or rebound. No evidence of tenderness throughout. Back: No spinal tenderness. No costovertebral tenderness. Full range of motion. Skin: Warm, dry with normal turgor. Normal color with no rashes, no lesions, and no evidence of cellulitis. MS/ Extremity: Pulses equal, no cyanosis. Neurovascular intact. Full, normal range of motion. Neuro: Awake and alert, GCS 15, oriented to person, place, time, and situation. Cranial nerves II-XII grossly intact. Motor strength 5/5 in all extremities. Sensory grossly intact. Cerebellar exam normal. Normal gait. Psych: Awake, alert, with orientation to person, place and time. Behavior, mood, and affect are within normal limits. Vital Signs: 17:03 BP 147 / 78; Pulse 48; Resp 16 S; Temp 97.7; Pulse Ox 98% on R/A; Weight 77.11 kg; iw Height 5 ft. 11 in. ; 18:59 BP 141 / 72; Pulse 56; Resp 16; Temp 98.2; Pulse Ox 100% ; me1 17:03 Body Mass Index 23.71 (77.11 kg, 180.34 cm) iw MDM: 17:03 Medical Screening Exam initiated sp3 17:36 Data reviewed: vital signs, nurses notes, old medical records, lab test result(s), EKG, sp3 radiologic studies. ED course: 74-year-old male with vague complaints of tingling in all extremities for a week. Patient is convinced that it is a side effect of the ciprofloxacin. Consider anxiety versus electrolyte abnormality versus side effect versus other. I am not highly suspicious of intracranial hemorrhage, stroke or other concerning pathway including ACS. Patient was seen here approximately 10 days ago for chest pain and ruled out. Today we will obtain CT scan of the head, general labs, EKG and general supportive care. NIH stroke scale is 0. If workup negative, we will safely discharge patient home. Patient has follow-up with cardiology and GI over the next several days and is also being seen at the [facility].. 18:46 ED course: Full workup negative. Vital signs remained stable. Will safely discharge sp3 patient home at this time.. 02/07 17:22 Order name: Basic Metabolic Panel; Complete Time: 18:16 sp3 02/07 17:22 Order name: CBC with Diff; Complete Time: 18:16 sp3 02/07 17:22 Order name: Troponin HS; Complete Time: 18:16 sp3 02/07 17:22 Order name: CT Head Brain wo Cont; Complete Time: 18:21 sp3 02/07 17:22 Order name: Cardiac monitoring; Complete Time: 18:57 sp3 02/07 17:22 Order name: IV Saline Lock; Complete Time: 17:45 sp3 02/07 17:22 Order name: Labs collected and sent; Complete Time: 17:45 sp3 02/07 17:22 Order name: O2 Sat Monitoring; Complete Time: 17:45 sp3 Administered Medications: No medications were administered Disposition Summary: 02/07/25 18:47 Discharge Ordered Notes: Location: Home sp3 Condition: Stable sp3 Diagnosis - Paresthesia, anxiety sp3 Followup: sp3 - With: Private Physician - When: Upon discharge from the Emergency Department - Reason: Continuance of care Discharge Instructions: - Discharge Summary Sheet sp3 - Managing Anxiety, Adult sp3 Forms: - Medication Reconciliation Form sp3 - Antibiotic Education sp3 - Prescription Opioid Use sp3 - Patient Portal Instructions sp3 - Leadership Thank You Letter sp3 Signatures: Dispatcher [employer] Kinsey Anne, DOMENICO RN iw Amanda Vang MD MD sp3 Yanna Enrique RN RN me1 Corrections: (The following items were deleted from the chart) 17:04 17:03 PMHx: brain bleed (diabetes mellitus ); [facility] 18:56 17:22 EKG - Nurse/Tech ordered. sp3 me1
[2025-02-07 19:22] VITALS: BP 147/78; TEMP 97.7; O2SAT 98
== END 2025-02-07 19:05 | disposition home or self-care (01) ==
LOC: ER 16:54
DX: F41.9 Anxiety disorder, unspecified (principal); E11.9 Type 2 diabetes mellitus without complications; G62.9 Polyneuropathy, unspecified
CPT/HCPCS: 36415; 70450; 80048; 84484; 85025; 99284

== ENCOUNTER 2025-07-10 19:16 | Emergency (ER) | payer MEDICARE, OTHER ==
[2025-07-10] MEDS ORDERED: FAMOTIDINE 20 MG/2 ML VIAL IV ONE (19:58)
[2025-07-10] MEDS ORDERED: NA CHLORIDE 0.9% 1,000 ML ONE (19:58)
[2025-07-10 20:31] LABS: Absolute Lymphocytes (CBC) 1.9 K/uL (0.7-4.9); Hematocrit 35.4 % (39.6-49.0); Hemoglobin 12.1 g/dL (13.6-17.9); MCH 33.0 pg (27.0-35.0); MCHC 34.2 g/dL (32.0-36.0); MCV 96.5 fL (80-100); MPV 6.8 fL (7.6-11.3); Nucleated RBC Absolute Count 0.0 (0-0); Nucleated Red Blood Cells % 0.0 % (0-0); RBC Red Blood Cell Count 3.67 M/uL (4.33-5.43); White Blood Count 11.60 thou/uL (4.3-10.9)
[2025-07-10 20:38] LABS: PT Prothrombin Time 13.8 SECONDS (10-13.0); Protime INR 1.23
--- NOTE | 2025-07-10 20:49 | RAD REPORT ---
EXAMINATION: ONE VIEW CHEST XR CLINICAL INDICATION: COUGH TECHNIQUE: Frontal chest projection is submitted. Examination is limited by patient positioning and t echnique. COMPARISON: 01/27/2025 FINDINGS: Mild bilateral pulmonary opacities favored to represent mild interstitial pulmonary edema. Trace pleu ral fluid bilaterally. The heart is mildly enlarged in size. No displaced fractures identified. Dual lead pacer device present. Cervical hardware. IMPRESSION: Mild CHF versus volume overload pattern is suspected.
[2025-07-10 20:54] LABS: ALT/SGPT 29.0 U/L (16-61); AST/SGOT 20.0 U/L (15-37); Albumin 3.5 g/dL (3.4-5.0); Albumin/Globulin Ratio 1.1 (1.1-1.8); Alkaline Phosphatase 74.0 U/L (45-117); Anion Gap 9.8 mEq/L (5.0-15.0); BUN Blood Urea Nitrogen 13.0 mg/dL (7-18); Bilirubin Indirect, Calculated 0.3 mg/dL (0.2-0.8); Globulin 3.3 g/dL (2.3-3.5); Glucose Level 163.0 mg/dL (74-106); Lipase 56.0 U/L (13-75); Magnesium 1.6 mg/dL (1.6-2.4); NT PRO-BNP 159.0 pg/mL (<450); Potassium 3.8 mEq/L (3.5-5.1); Troponin High Sensitivity 13.7 pg/mL (<58.9)
--- NOTE | 2025-07-10 21:11 | RAD REPORT ---
EXAMINATION: CAROTID DUPLEX ULTRASOUND CLINICAL INDICATION: SYNCOPE TECHNIQUE: Real-time grayscale, color flow and spectral Doppler sonographic images were obtained of t he extracranial carotid system using a linear transducer. COMPARISON: No prior exam. FINDINGS: RIGHT: Common carotid artery: 124 cm/s Internal carotid artery: 51 cm/s External carotid artery: 74 cm/s Right ICA/CCA ratio: 0.4 Plaque: Mild hard plaque in the carotid bulb. Vertebral artery Antegrade LEFT: Common carotid artery: 122 cm/s Internal carotid artery: 88 cm/s External carotid artery: 109 cm/s Left ICA/CCA ratio: 0.7 Plaque: Mild hard plaque in the carotid bulb. Vertebral artery Antegrade IMPRESSION: No hemodynamically significant stenosis (greater than 50%) within the extracranial internal carotid a rteries. The degrees of stenosis, if any, are quantified according to the consensus statement of the Society o f Radiologists in Ultrasound (SRUS). Please refer to Geovanny E, Vinicius C, Julio G et al. Carotid Artery Stenosis: Briones-Scale and Doppler US Diagnosis--Society of Radiologists in Ultrasound Consensus Conference. Radiology. 2003;229(2):340-6.
--- NOTE | 2025-07-10 21:26 | RAD REPORT ---
EXAM: CT brain without contrast HISTORY: SYNCOPE COMPARISON: 02/07/2025 TECHNIQUE: Multiple contiguous axial images were obtained and a CT of the brain without contrast. Sag ittal and coronal reformats were performed. One or more of the following dose reduction techniques were used: Automated exposure control, adjust ment of the mA and/or kV according to patient size, and/or iterative reconstruction. FINDINGS: No evidence of hydrocephalus, intracranial hemorrhage, or extra-axial fluid collection. Moderate brain atrophy with advanced periventricular and deep white matter chronic microvascular isch emic changes present. This pattern is unchanged since comparison study. No evidence of midline shift or areas of brain edema. The calvarium is intact. The visualized paranasal sinuses and mastoid air cells are essentially clear . IMPRESSION: No evidence of acute intracranial abnormality.
[2025-07-10] MEDS ORDERED: MAGNESIUM SULFATE 1 gm IVPB 1 GM/100 ML BAG IV ONE (21:39)
--- NOTE | 2025-07-10 21:48 | ER ---
Nurse's Notes [facility] Name: Uzair Kerns Age: 75 yrs Sex: Male : 1950 Arrival Date: 07/10/2025 Time: 19:16 Bed 14 Private MD: Diagnosis: Fall on same level, unspecified;Other specified diabetes mellitus with diabetic neuropathy, unspecified;Syncope Near Presentation: 07/10 19:30 Chief complaint: EMS states: toned out to patient's home by for syncope with a kj2 fall when using the bathroom. No LOC, no pain and he denies hitting his head. Coronavirus screen: Client denies travel out of the [place] in the last 14 days. Ebola Screen: No symptoms or risks identified at this time. Initial Sepsis Screen: Does the patient meet any 2 criteria? No. Patient's initial sepsis screen is negative. Does the patient have a suspected source of infection? No. Patient's initial sepsis screen is negative. Risk Assessment: Do you want to hurt yourself or someone else? Patient reports no desire to harm self or others. Onset of symptoms was July 10, 2025. 19:30 Method Of Arrival: [facility] kj2 19:30 Method Of Arrival: EMS: [facility] 2 19:30 Acuity: CHARY 3 kj2 Triage Assessment: 19:34 General: Appears in no apparent distress. Behavior is calm. Pain: Denies pain. Neuro: kj2 Level of Consciousness is awake, alert, Oriented to person, place, situation. Neuro: Reports a syncopal episode. Cardiovascular: Respiratory: Airway is patent Respiratory effort is even, unlabored. GI: No signs and/or symptoms were reported involving the gastrointestinal system. : No signs and/or symptoms were reported regarding the genitourinary system. Historical: - Allergies: 19:34 Cipro PO; kj2 19:34 Flagyl; kj2 - PMHx: 19:34 Brain bleed; diabetes mellitus; neuropathy; PTSD (neuropathy); kj2 - Immunization history:: Adult Immunizations up to date. - Infectious Disease History:: Denies. - Social history:: Smoking status: unknown. - Family history:: not pertinent. Screenin:36 [facility] ED Fall Risk Assessment (Adult) History of falling in the last 3 months, kj2 including since admission Yes- physiologic fall (2 pts) Confusion or Disorientation No (0 pts) Intoxicated or Sedated No (0 pts) Impaired Gait Yes (1 pt) Mobility Assist Device Used Yes (1 pt) Altered Elimination No (0 pt) Score/Fall Risk Level 3 or more points = High Risk Maintained a safe environment, Hourly rounding (assess needs \T\ fall precautionary measures) done. Abuse screen: Denies threats or abuse. Denies injuries from another. Nutritional screening: No deficits noted. Tuberculosis screening: No symptoms or risk factors identified. Assessment: 19:37 General: see triage assessment. kj2 20:00 Neuro: Level of Consciousness is awake, alert, Oriented to person, place, situation. kj2 20:43 Reassessment: Patient appears in no apparent distress at this time. Patient and/or kj2 family updated on plan of care and expected duration. Pain level reassessed. Patient is alert, oriented x 3, equal unlabored respirations, skin warm/dry/pink. 21:43 Reassessment: Patient appears in no apparent distress at this time. Patient and/or kj2 family updated on plan of care and expected duration. Pain level reassessed. Patient is alert, oriented x 3, equal unlabored respirations, skin warm/dry/pink. 22:00 Reassessment: Patient appears in no apparent distress at this time. Patient and/or kj2 family updated on plan of care and expected duration. Pain level reassessed. Patient is alert, oriented x 3, equal unlabored respirations, skin warm/dry/pink. 22:47 Cardiovascular: Rhythm is. kj2 Vital Signs: 19:30 BP 133 / 61; Pulse 74; Resp 20; Pulse Ox 97% ; Weight 84.37 kg; Height 5 ft. 9 in. ; kj2 20:42 BP 139 / 77; Pulse 67; Resp 18; Temp 97.8; Pulse Ox 99% on R/A; kj2 19:30 Body Mass Index 27.47 (84.37 kg, 175.26 cm) kj2 ED Course: 19:26 Patient arrived in ED. vc1 19:28 Dara Lilly, DOMENICO is Primary Nurse. kj2 19:33 Crow Chao MD is Attending Physician. [facility] 19:34 Triage completed. kj2 19:37 Patient has correct armband on for positive identification. Bed in low position. Call kj2 light in reach. Adult w/ patient. Provided Education on: call light. 19:40 Arm band placed on Patient placed. kj2 19:40 Maintain EMS IV. Dressing intact. Good blood return noted. Site clean \T\ dry. Gauge \T\ kj 2 site: 20g right AC. Flushed with 10 mL NS. 19:50 No provider procedures requiring assistance completed. kj2 20:33 XRAY Chest (1 view) In Process Unspecified. EDMS 20:33 US Carotid Artery Bilateral In Process Unspecified. EDMS 20:45 EKG done, by coal gasification technician. reviewed by Crow Chao MD. ts3 21:05 CT Head Brain wo Cont In Process Unspecified. EDMS 22:19 Urine collected: clean catch specimen, sent to lab. ts3 22:47 IV discontinued, intact, bleeding controlled, No redness/swelling at site. Pressure kj2 dressing applied. Administered Medications: 20:08 Drug: NS 0.9% IV 1000 ml IV at 1000 ml once; to be given as a bolus over 60 minutes kj2 Route: IV; Rate: 1000 ml; Site: right antecubital; 21:35 Follow up: IV Status: Completed infusion kj2 20:08 Drug: Famotidine IVP 20 mg IVP once; dilute with 10 mL 0.9% NaCl; give over 2 minutes kj2 Route: IVP; Site: right antecubital; 21:36 Follow up: Response: No adverse reaction kj2 21:51 Drug: Magnesium Sulfate IVPB 1 grams IVPB once over 20 mins Route: IVPB; Infused Over: kj2 20 mins; Site: right antecubital; 22:47 Follow up: IV Status: Completed infusion; IV Intake: 100ml kj2 Medication: 20:43 VIS not applicable for this client. kj2 Intake: 22:47 IV: 100ml; Total: 100ml. kj2 Outcome: 21:47 Discharge ordered by . yan 22:46 Discharged to home via wheelchair, with family, kj2 22:46 Condition: stable 22:46 Discharge instructions given to patient, family, Instructed on discharge instructions, follow up and referral plans. Demonstrated understanding of instructions, follow-up care, 22:48 Patient left the ED. kj2 Signatures: Dispatcher [employer] Crow Becerril MD MD cha Calcote, Vanessa RN RN vc1 Dara Lilly RN RN kj2 Barbra Asher ts3 Corrections: (The following items were deleted from the chart) 20:47 20:45 BP 118 / 66; Pulse 100bpm; Resp 20bpm; Pulse Ox 100% RA; kj2 kj2
--- NOTE | 2025-07-10 21:48 | EDPHYS ---
Physician Documentation [facility] Name: Uzair Kerns Age: 75 yrs Sex: Male : 1950 Arrival Date: 07/10/2025 Time: 19:16 Bed 14 Private MD: ED Physician Crow Chao HPI: 07/10 21:36 This 75 yrs old Male presents to ER via EMS with complaints of Syncope. yan 21:36 This 75 yrs old Male presents to ER via EMS with complaints of Syncope. yan 21:36 The patient has experienced near-syncope, fell, tripped, no loc. Onset: The yan symptoms/episode began/occurred just prior to arrival. Duration: This was a single episode, improved , better. Context: the episode(s) was witnessed, well informed. Associated injury: The patient did not suffer any apparent associated injury. Associated signs and symptoms: The patient has no apparent associated signs or symptoms. Current symptoms: improved. The patient has not experienced similar symptoms in the past. Historical: - Allergies: 19:34 Cipro PO; kj2 19:34 Flagyl; kj2 - PMHx: 19:34 Brain bleed; diabetes mellitus; neuropathy; PTSD (neuropathy); kj2 - Immunization history:: Adult Immunizations up to date. - Infectious Disease History:: Denies. - Social history:: Smoking status: unknown. - Family history:: not pertinent. ROS: 21:36 Constitutional: Negative for fever, chills, and weight loss, Eyes: Negative for injury, yan pain, redness, and discharge, ENT: Negative for injury, pain, and discharge, Neck: Negative for injury, pain, and swelling, Cardiovascular: Negative for chest pain, palpitations, and edema, Respiratory: Negative for shortness of breath, cough, wheezing, and pleuritic chest pain, Abdomen/GI: Negative for abdominal pain, nausea, vomiting, diarrhea, and constipation, Back: Negative for injury and pain, : Negative for injury, bleeding, discharge, and swelling, MS/Extremity: Negative for injury and deformity, Skin: Negative for injury, rash, and discoloration, Psych: Negative for depression, anxiety, suicide ideation, homicidal ideation, and hallucinations, Allergy/Immunology: Negative for hives, rash, and allergies, Endocrine: Negative for neck swelling, polydipsia, polyuria, polyphagia, and marked weight changes, Hematologic/Lymphatic: Negative for swollen nodes, abnormal bleeding, and unusual bruising, 21:36 Neuro: Positive for gait disturbance, weakness, bilateral le neuropathy, Exam: 21:44 Constitutional: This is a well developed, well nourished patient who is awake, alert, yan and in no acute distress. Head/Face: Normocephalic, atraumatic. Eyes: Pupils equal round and reactive to light, extra-ocular motions intact. Lids and lashes normal. Conjunctiva and sclera are non-icteric and not injected. Cornea within normal limits. Periorbital areas with no swelling, redness, or edema. ENT: Nares patent. No nasal discharge, no septal abnormalities noted. Tympanic membranes are normal and external auditory canals are clear. Oropharynx with no redness, swelling, or masses, exudates, or evidence of obstruction, uvula midline. Mucous membranes moist. Neck: Trachea midline, no thyromegaly or masses palpated, and no cervical lymphadenopathy. Supple, full range of motion without nuchal rigidity, or vertebral point tenderness. No Meningismus. Chest/axilla: Normal chest wall appearance and motion. Nontender with no deformity. No lesions are appreciated. Cardiovascular: Regular rate and rhythm with a normal S1 and S2. No gallops, murmurs, or rubs. Normal PMI, no JVD. No pulse deficits. Respiratory: Lungs have equal breath sounds bilaterally, clear to auscultation and percussion. No rales, rhonchi or wheezes noted. No increased work of breathing, no retractions or nasal flaring. Abdomen/GI: Soft, non-tender, with normal bowel sounds. No distension or tympany. No guarding or rebound. No evidence of tenderness throughout. Back: No spinal tenderness. No costovertebral tenderness. Full range of motion. Male : Normal genitalia with no discharge or lesions. Skin: Warm, dry with normal turgor. Normal color with no rashes, no lesions, and no evidence of cellulitis. MS/ Extremity: Pulses equal, no cyanosis. Neurovascular intact. Full, normal range of motion., bilateral aka Neuro: Awake and alert, GCS 15, oriented to person, place, time, and situation. Cranial nerves II-XII grossly intact. Motor strength 5/5 in all extremities. Sensory grossly intact. Cerebellar exam normal. Normal gait. Psych: Awake, alert, with orientation to person, place and time. Behavior, mood, and affect are within normal limits. 21:44 ECG was reviewed by the Attending Physician. 21:44 Musculoskeletal/extremity: DVT Exam: No signs of deep vein thrombosis. no pain, no swelling, no tenderness, negative Homans' sign noted on exam, no appreciated bluish discoloration, no erythema, no increased warmth, Vital Signs: 19:30 BP 133 / 61; Pulse 74; Resp 20; Pulse Ox 97% ; Weight 84.37 kg; Height 5 ft. 9 in. ; kj2 20:42 BP 139 / 77; Pulse 67; Resp 18; Temp 97.8; Pulse Ox 99% on R/A; kj2 19:30 Body Mass Index 27.47 (84.37 kg, 175.26 cm) kj2 MDM: 19:33 Medical Screening Exam initiated yan 21:45 Differential Diagnosis: aortic aneurysm, cardiac arrhythmia, cerebrovascular accident, yan emotional response, GI bleed, idiopathic syncope, seizure, sepsis, transient ischemic attack, vasovagal episode. Data reviewed: vital signs, nurses notes, EMS record, lab test result(s), EKG, radiologic studies, CT scan, doppler, plain films. Consideration of Admission/Observation Escalation of care including admission/observation considered. I considered the following discharge prescriptions or medication management in the emergency department Medications were administered in the Emergency Department. See MAR. Independent interpretation of the following test(s) in the Emergency Department EKG: See my EKG interpretation above. Test considered but Not performed: MRI: no mri brain. Historians other than the Patient: Spouse/Significant Other: well informed. Care significantly affected by the following chronic conditions: Diabetes, Hypertension, neuropathy, ptsd. 07/10 19:37 Order name: Basic Metabolic Panel; Complete Time: 21:25 [facility] 07/10 19:37 Order name: CBC with Diff; Complete Time: 21:25 [facility] 07/10 19:37 Order name: LFT's; Complete Time: 21:25 yan 07/10 19:37 Order name: Magnesium; Complete Time: 21:25 [facility] 07/10 19:37 Order name: NT PRO-BNP; Complete Time: 21:25 yan 07/10 19:37 Order name: PT-INR; Complete Time: 21:25 [facility] 07/10 19:37 Order name: Troponin HS; Complete Time: 21: [facility] 07/10 19:37 Order name: Lipase; Complete Time: : [facility] 07/10 19:37 Order name: UA Rfx Bello Cult if indicated [facility] 07/10 19:37 Order name: XRAY Chest (1 view); Complete Time: 21:25 [facility] 07/10 19:37 Order name: US Carotid Artery Bilateral; Complete Time: 21: [facility] 07/10 19:37 Order name: CT Head Brain wo Cont; Complete Time: 21:34 [facility] 07/10 19:37 Order name: Cardiac monitoring; Complete Time: 20: [facility] 07/10 19:37 Order name: EKG - Nurse/Tech; Complete Time: 20:44 [facility] 07/10 19:37 Order name: IV Saline Lock; Complete Time: 20: [facility] 07/10 19:37 Order name: Labs collected and sent; Complete Time: 20: [facility] 07/10 19:37 Order name: O2 Per Protocol; Complete Time: 20: [facility] 07/10 19:37 Order name: O2 Sat Monitoring; Complete Time: 20: [facility] EC:44 Rate is 66 beats/min. Rhythm is regular. QRS Pierron is Normal. NC interval is normal. QRS yan interval is normal. QT interval is normal. No Q waves. T waves are Normal. No ST changes noted. Clinical impression: NSR w/ Non-specific ST/T Changes and No evidence of ischemia. Interpreted by me. Reviewed by me. Administered Medications: 20:08 Drug: NS 0.9% IV 1000 ml IV at 1000 ml once; to be given as a bolus over 60 minutes kj2 Route: IV; Rate: 1000 ml; Site: right antecubital; 21:35 Follow up: IV Status: Completed infusion kj2 20:08 Drug: Famotidine IVP 20 mg IVP once; dilute with 10 mL 0.9% NaCl; give over 2 minutes kj2 Route: IVP; Site: right antecubital; 21:36 Follow up: Response: No adverse reaction kj2 21:51 Drug: Magnesium Sulfate IVPB 1 grams IVPB once over 20 mins Route: IVPB; Infused Over: kj2 20 mins; Site: right antecubital; 22:47 Follow up: IV Status: Completed infusion; IV Intake: 100ml kj2 Disposition Summary: 07/10/25 21:47 Discharge Ordered Notes: Location: Home yan Problem: new yan Symptoms: have improved yan Condition: Stable yan Diagnosis - Fall on same level, unspecified yan - Other specified diabetes mellitus with diabetic neuropathy, unspecified yan - Syncope Near yan Followup: yan - With: Private Physician - When: 2 - 3 days - Reason: Recheck today's complaints, Continuance of care, Re-evaluation by your physician Discharge Instructions: - Discharge Summary Sheet yan - Fall Prevention in the Home, Adult yan - Near-Syncope yan - Peripheral Neuropathy yan - Near-Syncope, [id number] yan - Diabetic Neuropathy yan - Blood Glucose Monitoring, Adult yan - Fall Prevention in the Home, Adult, [id number] yan Forms: - Medication Reconciliation Form yan - Antibiotic Education yan - Prescription Opioid Use yan - Patient Portal Instructions yan - Leadership Thank You Letter yan Signatures: Dispatcher [employer] EDMS Crow Chao MD MD cha Jordan, Krystal RN RN kj2 Corrections: (The following items were deleted from the chart) 19:38 19:38 BASIC METABOLIC PANEL+C.LAB.BRZ ordered. EDMS EDMS 19:38 19:38 CBC+H.LAB.BRZ ordered. EDMS EDMS 19:38 19:38 HEPATIC FUNCTION+C.LAB.BRZ ordered. EDMS EDMS 19:38 19:38 MAGNESIUM+C.LAB.BRZ ordered. EDMS EDMS 19:38 19:38 PROBNP+C.LAB.BRZ ordered. EDMS EDMS 19:38 19:38 PROTIME (+INR)+COAG.LAB.BRZ ordered. EDMS EDMS 19:38 19:38 Troponin High Sensitivity+C.LAB.BRZ ordered. EDMS EDMS 19:38 19:38 LIPASE+C.LAB.BRZ ordered. EDMS EDMS 19:38 19:38 UA Rfx Bello Cult if indicated+U.LAB.BRZ ordered. EDMS EDMS 19:38 19:38 Chest Single View+RAD.RAD.BRZ ordered. EDMS EDMS 19:38 19:38 Carotid Artery Bilateral+US.RAD.BRZ ordered. EDMS EDMS 19:39 19:39 Head Brain Wo Cont+CT.RAD.BRZ ordered. EDMS EDMS
[2025-07-10 22:44] LABS: Urine Microscopic Reflex YN NO UMIC
[2025-07-11 07:08] VITALS: BP 139/77; TEMP 97.8; O2SAT 99
== END 2025-07-10 22:48 | disposition home or self-care (01) ==
LOC: ER 19:16
DX: R55 Syncope and collapse (principal); E11.9 Type 2 diabetes mellitus without complications; F43.10 Post-traumatic stress disorder, unspecified; E11.40 Type 2 diabetes mellitus with diabetic neuropathy, unspecified; W01.0XXA Fall on same level from slipping, tripping and stumbling without subsequent striking against object, initial encounter; Y93.9 Activity, unspecified; Z88.1 Allergy status to other antibiotic agents
CPT/HCPCS: 96365; 96361; 93005; 85025; 80048; 36415; 83735; 85610; 80076; 81003; 84484; 83690; 83880; 70450; 71045; 93880; 96375; 99284; J3475; J7030